=== PATIENT | male | born 1955 | race Caucasian/White ===

== ENCOUNTER → 2018-01-09 | Outpatient (CLI) | payer OTHER | END | disposition home or self-care (01) | LOC: PNCL 07:54 | DX: M54.5 Low back pain (principal); M79.605 Pain in left leg; M79.604 Pain in right leg; I10 Essential (primary) hypertension; E11.9 Type 2 diabetes mellitus without complications; I25.10 Atherosclerotic heart disease of native coronary artery without angina pectoris; E66.9 Obesity, unspecified; M13.80 Other specified arthritis, unspecified site; Z79.4 Long term (current) use of insulin | CPT/HCPCS: G0463 ==

== ENCOUNTER → 2019-02-19 | Outpatient (CLI) | payer OTHER ==
[~2019-02-19] MED LIST: AMLO2.5T5 PO; ATOR40TA59 PO; BUPIVACAINE MPF 0.25% 10 ML VIAL. ONE; CARV3.1210 PO; CHOL10003 PO; CLOP75TA PO; FLUT16SP NS; FURO40TA4 PO; INSU100I17 SQ; INSU100V13 SQ; IOHEXOL 180 MG/ML 10 ML VIAL. ONE; LOSA100T14 PO; MELO15TA23 PO; METF500T16 PO; METO100T7 PO; NAPR-514 PO; NITR0.4T22 SL; PRAV20TA2 PO; ROPI1TAB PO; SPIR50TA4 PO; methylPREDNISolone ACETATE 40 MG/ML VIAL. ONE; methylPREDNISolone ACETATE 80 MG/ML VIAL. ONE
--- NOTE | 2019-02-19 21:15 | PAIN ---
DATE OF SERVICE: 02/19/2019 INITIAL CONSULTATION FOR PAIN CLINIC CHIEF COMPLAINT: Low back and left lower extremity pain. HISTORY OF PRESENT ILLNESS: This is a 63-year-old male who presents with history of pain in the low back, especially on the left side, but primarily in the low back itself bilaterally. The patient reports it has been going on for several years, worse over the past year or so, increasing with activity, standing, walking, changing positions, better with sitting or lying down, but awakening him from sleep about 2-3 times a night. The patient reports it does not affect his bowel or bladder control. He is using a cane to walk, though he does not have one with him today. It does affect his walking in that respect. Some radiation into the left lateral thigh, but mostly across the low back, left greater than right. The patient reports he has had previous physical therapy, chiropractic treatment, exercise and these have all helped to some extent. He has had no other treatments at this time and nothing recently. Last physical therapy was about a year ago or more. The patient reports it did help, but he has been doing some manipulation exercise therapies on his own and trying to walk daily, even though it is difficult with his back. The patient rates his disability rating from 0-10, 10 being the worst, is a 5 with family and home responsibilities, recreation, social activity, self-care; 6 with occupation; 10 with sexual behavior; 4 with life support activities. The patient has tried [id number] Aleve as well as Tylenol with only moderate decrease in pain. The patient describes the pain as constant, throbbing in the low back itself, aching, radiating into the left lateral thigh, at times only to the knee and only on the lateral aspect of the thigh, but mostly in the back and worse with axial loading and extension of the lumbar spine, also with rotation and forward flexion causes some pain as well in the low back itself. PAST MEDICAL HISTORY: Significant for hypertension, obesity, type 2 diabetes, hearing loss, Taylor's palsy, arthritis, coronary artery disease. PREVIOUS SURGERY: Include right shoulder surgery x 4, tonsillectomy and cataract extractions, also cardiac stents placed. CURRENT MEDICATIONS: Include carvedilol, pravastatin, metformin, fluticasone, insulin NovoLog, Lasix, naproxen, amlodipine, meloxicam, clopidogrel, which has been discontinued times about 3 weeks ago, nitroglycerin, metoprolol, losartan, Levemir insulin, vitamin D3, ReQuip. ALLERGIES: The patient has no known drug allergies. SOCIAL HISTORY: The patient does not drink alcohol, does not smoke. Denies any illegal, illicit or recreational drugs. He is , lives with his spouse and lives locally in [place], [place]. FAMILY HISTORY: Significant for no major medical problems or conditions that he is aware of. REVIEW OF SYSTEMS: The patient's review of systems is positive for those items mentioned in history of present illness. All systems reviewed and otherwise negative. It is complete, full and well documented on the patient's chart. PHYSICAL EXAMINATION: VITAL SIGNS: The patient's blood pressure is 135/72, pulse 78, respirations 18, temperature 98.1 degrees Fahrenheit, height is 5 feet 6 inches, weight is 266 pounds. GENERAL: The patient is awake, alert, oriented, appropriate, very pleasant demeanor. HEENT: Shows normocephalic, atraumatic. Extraocular movements are intact and symmetrical. Oral cavity: Mucous membranes moist and pink. Dentition is intact. NECK: Shows anterior throat supple without palpable lymphadenopathy noted. Swallow reflex is symmetrical. CHEST: Shows normal on inspection. Breath sounds are clear to auscultation bilaterally. HEART: Shows S1, S2 clear. No murmurs auscultated. ABDOMEN: Soft, nontender, nondistended. No palpable organomegaly is noted. No rebound or guarding demonstrated. BACK: Shows spine grossly in the midline. Normal appearing cervical lordotic curvature, thoracic kyphotic curvature, minor flattening of lumbar lordotic curvature. Lumbar paraspinous muscle shows symmetrical on inspection. On palpation shows some moderate tenderness diffusely bilaterally, but only diffusely in the low lumbar distribution without trigger points, without radiation. The patient has no tenderness over the spinous processes, sacrum or sacroiliac regions. The patient has good rotational motion of lumbar spine with significant tenderness with extension and with forward flexion across the low back, again worse slightly on the right than the left, but present bilaterally. EXTREMITIES: The patient's lower extremities show deep tendon reflexes at 1+ in the patellar and tendo calcaneus tendons are equal. Motor exam is approximately 5 on a scale of 5 with dorsiflexion, extension, quadriceps and hamstring flexion and symmetrical. Peripheral pulses are 1+ posterior tibial. No peripheral edema is noted. Straight leg raising is negative for reproduction of any radicular symptoms bilaterally. Gaenslen's and Cruzito's maneuvers are negative bilaterally as well. The patient is able to stand, stand on his toes, and loses balance fairly easily and reports pain in his left leg with standing on his toes with all his weight on his left side, also painful in the left hip posteriorly and in the left lateral thigh as well. The patient not using any assistive devices on his visit today, but reports he does use a cane at home and at other times. SKIN: The patient's skin shows warm and dry, good turgor. No edema. No sores, rashes or bruising throughout. IMPRESSION: This is a 63-year-old male with: 1. Several year history of increasing pain in low back as well as some radiation to left lower extremity, worse over the past year. 2. MRI scan lumbar spine showing focal disk protrusion noted at L3-L4, facet and ligamentous hypertrophy seen at L4-L5 and L5-S1 with disk space narrowing as well, mild bilateral foraminal stenosis. 3. Arthritis. 4. Hypertension. 5. Diabetes. 6. Obesity. 7. Cardiac disease. PLAN: Options were discussed with the patient including conservative medical management, physical therapy, interventional techniques. He would like to pursue interventional techniques as we discussed a lumbar bilateral L4-L5 and L5-S1 facet joint injections using description as well as anatomical models to describe the procedure. Risks were then discussed including, but not limited to bleeding, infection, possibility of epidural hematoma, subsequent neurologic compromise, dural puncture, headaches, spinal cord and/or nerve damage, side effects of steroid medication and poor results regarding pain control. The patient understands and wished to proceed. The patient will return to the clinic in approximately 2 weeks for followup, was counseled on return appointment, activity level and side effects to be aware of. DIAGNOSIS: Bilateral lumbar L4-L5 and L5-S1 spondylosis with low back pain. PROCEDURE: Bilateral L4-L5 and L5-S1 facet joint injections using C-arm fluoroscopic guidance under sterile prep and drape using local anesthetic. MEDICATION INJECTED: A total of 4 mL of 0.25% bupivacaine, 1 mL at each level as well as a total of 120 mg Depo-Medrol and total of 2 mL of 0.25 mL at each level of contrast. CONDITION AT DISCHARGE: Stable. The patient tolerated the procedure well, had no complications. EMELY HODGES MD DR: ARJUN/delicia JOB#: [id number] / [id number]
== END | disposition home or self-care (01) ==
LOC: PNCL 09:56
PROVIDERS: ATTEND Anesthesiology
DX: M47.816 Spondylosis without myelopathy or radiculopathy, lumbar region (principal); I10 Essential (primary) hypertension; E11.9 Type 2 diabetes mellitus without complications; M19.90 Unspecified osteoarthritis, unspecified site; H91.90 Unspecified hearing loss, unspecified ear; I25.10 Atherosclerotic heart disease of native coronary artery without angina pectoris; G51.0 Bell's palsy; Z98.890 Other specified postprocedural states; Z98.49 Cataract extraction status, unspecified eye; Z96.1 Presence of intraocular lens; Z95.5 Presence of coronary angioplasty implant and graft; Z79.84 Long term (current) use of oral hypoglycemic drugs; Z79.899 Other long term (current) drug therapy; Z88.8 Allergy status to other drugs, medicaments and biological substances
CPT/HCPCS: 64493; 64494; J1030; J1040; J3490; Q9965

== ENCOUNTER → 2019-03-05 | Outpatient (CLI) | payer OTHER ==
[~2019-03-05] MED LIST changes: -BUPIVACAINE MPF 0.25% 10 ML VIAL. ONE
--- NOTE | 2019-03-05 20:45 | PAIN ---
DATE OF SERVICE: 03/05/2019 PROGRESS NOTE FOR PAIN CLINIC: DIAGNOSES: Lumbar degenerative disk disease, lumbar spondylosis and lumbar radiculopathy. HISTORY OF PRESENT ILLNESS: The patient is a 63-year-old male who returns for followup status post lumbar facet joint injections with only very minimal decrease in pain over the last few weeks. The patient reports pain is still in the low back, worse on the left than the right, but present bilaterally, radiating into the left lateral anterior thigh, mostly with walking, standing, change in positions. The patient reports the pain is still about the same and is rated as a 7 on a scale of 10 at its worst over the past weeks, 5 on average and 3 at its least and is a 5 today. The patient reports it is worse with walking, standing, changing positions, starting to radiate more into the right leg and anterior thigh than it was previously. The patient reports it is aching, dull, sharp and shooting at times as well. The patient reports no new motor or sensory deficits, no new bowel or bladder incontinence or other complaint. The patient is watching his blood sugars, now has been put on insulin through his primary care physician, which he is taking and this lowered his blood pressure fairly significantly by his report. The patient reports no other changes. PHYSICAL EXAMINATION: VITAL SIGNS: The patient's blood pressure 107/72, pulse 83, respirations 18, temperature 98.1 degrees Fahrenheit, height is 5 feet 6 inches, weight is 257 pounds. GENERAL: The patient is awake, alert, oriented, appropriate, very pleasant demeanor. HEENT: Head is normocephalic, atraumatic. Extraocular movements are intact and symmetrical. Oral cavity: Mucous membranes moist and pink. Dentition is intact. NECK: Shows anterior throat supple without palpable lymphadenopathy noted. Swallow reflex symmetrical. CHEST: Shows normal with inspection. Breath sounds clear to auscultation bilaterally. HEART: Shows S1, S2 clear. No murmurs auscultated. ABDOMEN: Obese, soft, nontender, nondistended. BACK: Shows spine grossly in the midline. Normal appearing thoracic kyphosis and minor flattening of lumbar lordotic curvature. Lumbar paraspinous muscle shows symmetrical on inspection, on palpation shows some moderate tenderness diffusely, but only diffusely without significant radiation. EXTREMITIES: The patient's lower extremities show deep tendon reflexes 1+ in the patellar and tendo calcaneus tendons are equal. Motor exam is 5/5 with dorsiflexion, extension and symmetrical. Peripheral pulses are 1+ posterior tibial. No peripheral edema is noted bilaterally. Options were discussed with the patient. The patient's old chart was reviewed as her current medication regimen updated. Current review of systems updated today as well. We will proceed with a lumbar epidural steroid injection today with fluoroscopic guidance. Risks were again discussed including, but not limited to bleeding, infection, possibility of epidural hematoma, subsequent neurological compromise, dural puncture headaches, spinal cord and/or nerve damage, side effects of steroid medication and poor results regarding pain control. The patient understands and wished to proceed. The patient will return to clinic in approximately 2 weeks for followup, was counseled on return appointment, activity level and side effects to be aware of. DIAGNOSES: Lumbar radiculopathy with lumbar degenerative disk disease, lumbar spondylosis. PROCEDURE: Lumbar epidural steroid injection, translaminar approach at L3-L4 level using C-arm fluoroscopic guidance under sterile prep and drape using local anesthetic. MEDICATION INJECTED: A total of 120 mg Depo-Medrol plus 10 mL of preservative-free normal saline and 2 mL of Isovue for contrast. CONDITION AT DISCHARGE: Stable. The patient tolerated procedure well, had no complications. EMELY HODGES MD DR: ARJUN/delicia JOB#: [id number] / [id number]
== END ==
LOC: PNCL 09:10
PROVIDERS: ATTEND Anesthesiology
DX: M51.16 Intervertebral disc disorders with radiculopathy, lumbar region (principal); M47.816 Spondylosis without myelopathy or radiculopathy, lumbar region; M54.5 Low back pain
CPT/HCPCS: 62323; J1030; J1040; Q9965

== ENCOUNTER → 2019-03-19 | Outpatient (CLI) | payer OTHER ==
--- NOTE | 2019-03-19 12:45 | PAIN ---
DATE OF SERVICE: 03/19/2019 PROGRESS NOTE FOR PAIN CLINIC DIAGNOSES: Lumbar radiculopathy with lumbar degenerative disk disease and lumbar spondylosis. HISTORY OF PRESENT ILLNESS: The patient is a 63-year-old male who returns for followup status post lumbar epidural steroid injection x 1 and lumbar facet injections. He reports only minimal decrease in pain with his lumbar facet injection, but lumbar epidural steroid injection he had on his last visit, returning now reporting approximately 50% improvement. He reports he is feeling much better. The patient reports he has increased his activity with greater distance walking and doing activities around the house and traveling. He has been to [facility] with good tolerance of traveling and comfort. The patient reports there is still pain in the low back and the bilateral lower extremities, worse on the left, but present bilaterally. The patient describes it as aching, tingling, burning, cramping and shooting across the back into the lateral thighs, anterior thighs and medial thighs, again worse on the left side. The patient reports it is a 6 on a scale of 10 at its worst in the past week, 4 on average and a 4 at its least and is a 4 today. The patient reports no new motor or sensory deficits, no new bowel or bladder incontinence or other complaints. PHYSICAL EXAMINATION: VITAL SIGNS: The patient's blood pressure is 96/65, pulse 78, respirations 18 and temperature 98.2 degrees Fahrenheit. Height is 5 feet 6 inches and weight is 258 pounds. GENERAL: The patient is awake, alert, oriented, appropriate, very pleasant demeanor. HEENT: Shows normocephalic, atraumatic. Extraocular movements are intact and symmetrical. Oral cavity, mucous membranes are moist and pink. Dentition is intact. NECK: Shows anterior throat supple, without palpable lymphadenopathy noted. Swallow reflex is symmetrical. CHEST: Shows normal on inspection. Breath sounds are clear to auscultation bilaterally. HEART: Shows S1, S2 clear. No murmurs auscultated. ABDOMEN: Obese, soft, nontender and nondistended. No palpable organomegaly is noted. No rebound or guarding demonstrated. BACK: Shows spine grossly in the midline. Normal-appearing thoracic kyphosis and minor flattening of the lumbar lordotic curvature. Lumbar paraspinous muscle shows symmetrical on inspection. On palpation, there is some moderate tenderness diffusely, but only diffusely, without radiation bilaterally and symmetrical, without evidence of atrophy or hypertrophy. No trigger points demonstrated. EXTREMITIES: The patient's lower extremities show deep tendon reflexes 1+ in the patellar and tendo calcaneus tendons are equal. Motor exam is strong with 5/5 dorsiflexion, extension, quadriceps and hamstring flexion and symmetrical 0. Peripheral pulses are 1+ posterior tibia. No peripheral edema bilaterally. Options were discussed with the patient. The patient's old chart was reviewed as was his current medication regimen updated. Current review of systems updated today as well. We will proceed with a second in the series of lumbar epidural steroid injection today with fluoroscopic guidance. Risks were again discussed including, but not limited to bleeding, infection, possibility of epidural hematoma, subsequent neurologic compromise, dural puncture, headaches, spinal cord and/or nerve damage, side effects of steroid medication and poor results regarding pain control. The patient understands and wishes to proceed. The patient will return to the clinic in approximately 2 weeks for followup. He was counseled on his return appointment, activity level and side effects to be aware of. DIAGNOSES: Lumbar radiculopathy with lumbar degenerative disk disease and lumbar spondylosis. PROCEDURES: Lumbar epidural steroid injection in translaminar approach at L3-L4 level using C-arm fluoroscopic guidance under sterile prep and drape using local anesthetic. MEDICATION INJECTED: A total of 120 mg Depo-Medrol plus 10 mL of preservative-free normal saline and 2 mL of contrast. CONDITION AT DISCHARGE: Stable. The patient tolerated the procedure well, had no complications. EMELY HODGES MD DR: ARJUN/delicia JOB#: [id number] / [id number]
== END ==
LOC: PNCL 09:22
PROVIDERS: ATTEND Anesthesiology
DX: M51.16 Intervertebral disc disorders with radiculopathy, lumbar region (principal); M47.26 Other spondylosis with radiculopathy, lumbar region
CPT/HCPCS: 62323; J1030; J1040; Q9965